=== PATIENT | male | born 1970 | race Native Hawaiian/Other Pacific Islander ===

== ENCOUNTER 2020-12-01 09:41 | Outpatient (CLI) | payer BC | END 2020-12-01 22:05 | disposition home or self-care (01) | LOC: RESP 09:41 | PROVIDERS: ATTEND Family Medicine | DX: G56.02 Carpal tunnel syndrome, left upper limb (principal); G56.22 Lesion of ulnar nerve, left upper limb | CPT/HCPCS: 95885; 95909 ==